=== PATIENT | female | born 1945 | race Caucasian/White ===

== ENCOUNTER 2016-08-21 18:24 | Emergency (ER) | payer OTHER ==
[~2016-08-21] VITALS: Ht 152.4 cm; Wt 55.6 kg
[~2016-08-21 18:24] MED LIST: POLY119S PO; ZOFR4TAB3 PO
[2016-08-21 18:36] VITALS: BP 141/102; PULSE 82; RESP 18; TEMP 98.2; O2SAT 96
[2016-08-21] MEDS ORDERED: SERT-132 PO (18:49)
[2016-08-21] MEDS ORDERED: PRAV40TA2 PO (18:49)
[2016-08-21] MEDS ORDERED: OMEP20TA PO (18:49)
[2016-08-21] MEDS ORDERED: ATEN100T PO (18:49)
[2016-08-21] MEDS ORDERED: AMLO10TA2 PO (18:49)
[2016-08-21] MEDS ORDERED: LISI-515 PO (18:49)
[2016-08-21] MEDS ORDERED: HYDR-3535 PO (18:49)
--- NOTE | 2016-08-21 18:53 | PD ---
HPI Chief Complaint: Skin Problem Time Seen by Provider: 18:52 Travel History International Travel<30 days: No Contact w/Intl Traveler<30days: No Traveled to known affect area: No History of Present Illness HPI 71 yo F c/o mass in region of perineum associated with pain. + Pressure like sensation with urge to defecate. Pain is worse with bowel movements. Duration 4 days. No fever. No recent trauma. Pt has an appointment with colorectal surgery next week. She reports mass is only palpable during bowel movement or urination. PFSH Past Medical History Depression: Yes High Cholesterol: Yes GERD: Yes Hypertension: Yes Medical other: Yes (CHRONIC BACK PAIN) Tetanus Vaccination: < 5 Years Influenza Vaccination: Yes ?: Not Past Surgical History Hysterectomy: Yes Social History Alcohol Use: No Tobacco Use: Yes (04/08 PPD) Substance Use: No Allergies-Medications (Allergen,Severity, Reaction): Coded Allergies: Aspirin (Verified Allergy, Severe, Hives, 08/21/16) Augmentin (Verified Allergy, Severe, Rash, 08/21/16) Biaxin (Verified Allergy, Severe, Rash, 08/21/16) Duricef (Verified Allergy, Severe, Rash, 08/21/16) Keflex (Verified Allergy, Severe, Rash, 08/21/16) Sulfa (Verified Allergy, Severe, Rash, 08/21/16) Reported Meds & Prescriptions Reported Meds & Active Scripts Active Reported Lortab (Hydrocodone-Acetaminophen) 10-325 Mg Tab 1 Tab PO BID PRN Sertraline (Sertraline HCl) 50 Mg Tab 50 Mg PO DAILY Omeprazole 20 Mg Tab 20 Mg PO DAILY Pravastatin 40 Mg Tab 40 Mg PO DAILY Atenolol 100 Mg Tab 100 Mg PO DAILY Lisinopril 20 Mg Tab 20 Mg PO DAILY Amlodipine (Amlodipine Besylate) 10 Mg Tab 10 Mg PO DAILY Review of Systems Except as stated in HPI: all other systems reviewed are Neg General / Constitutional: No: Fever Skin: Positive Lesions Physical Exam Narrative GENERAL: 71 yo F, WNWD, NAD : No palpable vulvar or perirectal mass. No mass on rectal exam. No vaginal mass. No VD/VB. No rectal bleed. SKIN: Warm and dry. HEAD: Atraumatic. Normocephalic. EYES: Pupils equal and round. No scleral icterus. No injection or drainage. ENT: No nasal bleeding or discharge. Mucous membranes pink and moist. NECK: Trachea midline. No JVD. CARDIOVASCULAR: Regular rate and rhythm. RESPIRATORY: No accessory muscle use. Clear to auscultation. Breath sounds equal bilaterally. GASTROINTESTINAL: Abdomen soft, non-tender, nondistended. Hepatic and splenic margins not palpable. MUSCULOSKELETAL: Extremities without clubbing, cyanosis, or edema. No obvious deformities. NEUROLOGICAL: Awake and alert. No obvious cranial nerve deficits. Motor grossly within normal limits. Five out of 5 muscle strength in the arms and legs. Normal speech. PSYCHIATRIC: Appropriate mood and affect; insight and judgment normal. Data Data Last Documented VS Vital Signs Date Time Temp Pulse Resp B/P Pulse Ox O2 Delivery O2 Flow Rate FiO2 08/21/16 20:30 85 18 118/80 96 Room Air 08/21/16 18:36 98.2 VS reviewed Orders Basic Metabolic Panel (Bmp) (08/21/16 19:29) Complete Blood Count With Diff (08/21/16 19:29) Urinalysis - C+S If Indicated (08/21/16 19:29) Iv Access Insert/Monitor (08/21/16 19:29) Sodium Chloride 0.9% Flush (Ns Flush) (08/21/16 19:30) Ct Pelvis W Iv Contrast(Rout) (08/21/16 ) Diatrizoate Liq ( Gastroview Liq) (08/21/16 19:30) Fleets Enema PRN (08/21/16 19:53) Sodium Chlor 0.9% 1000 Ml Inj (Ns 1000 M (08/21/16 20:30) Ondansetron Inj (Zofran Inj) (08/21/16 20:30) Ketorolac Inj (Toradol Inj) (08/21/16 20:30) Fleets Enema (Adult) (Fleets Enema (Adul (08/21/16 21:30) Iohexol 350 Inj (Omnipaque 350 Inj) (08/21/16 21:31) Acetamin-Hydrocod 325-5 Mg ([place] 5-325 (08/21/16 22:30) Labs Laboratory Tests Test 08/21/16 08/21/16 19:30 19:40 Urine Color YELLOW Urine Turbidity CLEAR Urine pH 6.0 Urine Specific [place] 1.025 Urine Protein TRACE mg/dL Urine Glucose (UA) NEG mg/dL Urine Ketones TRACE mg/dL Urine Occult Blood NEG Urine Nitrite NEG Urine Bilirubin NEG Urine Leukocyte Esterase TRACE Urine RBC 0-2 /hpf Urine WBC 3-5 /hpf Urine Squamous Epithelial 0-5 /hpf Cells Urine Bacteria OCC /hpf Microscopic Urinalysis Comment CULT NOT INDICATED White Blood Count 9.6 TH/MM3 Red Blood Count 4.81 MIL/MM3 Hemoglobin 14.2 GM/DL Hematocrit 41.6 % Mean Corpuscular Volume 86.5 FL Mean Corpuscular Hemoglobin 29.4 PG Mean Corpuscular Hemoglobin 34.0 % Concent Red Cell Distribution Width 13.5 % Platelet Count 290 TH/MM3 Mean Platelet Volume 7.7 FL Neutrophils (%) (Auto) 65.3 % Lymphocytes (%) (Auto) 26.6 % Monocytes (%) (Auto) 5.6 % Eosinophils (%) (Auto) 1.5 % Basophils (%) (Auto) 1.0 % Neutrophils # (Auto) 6.3 TH/MM3 Lymphocytes # (Auto) 2.6 TH/MM3 Monocytes # (Auto) 0.5 TH/MM3 Eosinophils # (Auto) 0.1 TH/MM3 Basophils # (Auto) 0.1 TH/MM3 CBC Comment DIFF FINAL Differential Comment Sodium Level 137 MEQ/L Potassium Level 4.3 MEQ/L Chloride Level 101 MEQ/L Carbon Dioxide Level 31.4 MEQ/L Anion Gap 5 MEQ/L Blood Urea Nitrogen 26 MG/DL Creatinine 0.77 MG/DL Estimat Glomerular Filtration 74 ML/MIN Rate Random Glucose 100 MG/DL Calcium Level 8.9 MG/DL [facility] Medical Decision Making Medical Screen Exam Complete: Yes Emergency Medical Condition: Yes Differential Diagnosis perirectal abscess, bartholin cyst, cellulitis, neoplasm Narrative Course CBC & BMP Diagram 08/21/16 19:40 Last [address] 08/21/16 0000 Signed Impressions: Service Date/Time: Sunday, August 21, 2016 21:21 - CONCLUSION: 1. No evidence of acute pelvic process. No masses are identified. 2. 3.6 cm abdominal aortic aneurysm Rashid Robbins MD The patient is resting comfortably and feels better, is alert and in no distress. The patients results and examination findings were discussed. The repeat examination is unremarkable and benign. The history, exam, diagnostic testing, and current condition do not suggest any significant pathology to warrant further testing, continued ED treatment, admission, or surgical evaluation at this point. The vital signs have been stable. The patient does not have uncontrollable pain, intractable vomiting, or other significant symptoms. The patient's condition is stable and appropriate for discharge. The patient will pursue further outpatient evaluation with a primary care physician or other designated or consulting physician as indicated in the discharge instructions. The patient expressed understanding and was agreeable with this plan. Diagnosis Primary Impression: Rectal mass Additional Impression: Abdominal aortic aneurysm (AAA) 3.0 cm to 5.0 cm in diameter in female Referrals: DR SCOTT 2 days Colon Rectal Specialist 2 days Additional Instructions: You have a choice when it comes to health care, and we are glad that you chose [facility]. Hopefully, we have met your expectations on today's visit. You are welcome to return to [facility] at any time, as we are committed to meeting the health care needs of our community. PLEASE FOLLOW UP WITH COLORECTAL SURGEON PLANNED. PLEASE FOLLOW UP WITH DR SCOTT REGARDING YOUR ABDOMINAL ANEURYSM. TODAY IT MEASURES 3.6CM, WHICH SHOULD BE COMPARED TO MOST RECENT MEASUREMENT ON RECORD. Med/Other Pt SpecificInfo: No Change to Meds Disposition: 01 DISCHARGE HOME Condition: Stable Abram Agudelo MD August 21, 2016 18:53
[2016-08-21 19:15] VITALS: BP 111/73; PULSE 83; RESP 17; O2SAT 98
[2016-08-21] MEDS ORDERED: SODIUM CHLORIDE 0.9% FLUSH 10 ML FLUSH IV FLUSH PRN (19:30)
[2016-08-21] MEDS ORDERED: DIATRIZOATE MEGLUM/DIATRIZOATE SOD 9 ML CUP RECTAL ONE (19:30)
[2016-08-21 19:53] LABS: AUTOMATED NEUTROPHIL # 6.3 TH/MM3 (1.8-7.7); BASOPHIL # 0.1 TH/MM3 (0-0.2); EOSINOPHIL # 0.1 TH/MM3 (0-0.4); EOSINOPHIL % 1.5 % (0.0-4.0); HEMATOCRIT 41.6 % (35.0-46.0); HEMO FLAGS DIFF FINAL; LYMPH % 26.6 % (9.0-44.0); LYMPHOCYTE # 2.6 TH/MM3 (1.0-4.8); MEAN CELL VOLUME 86.5 FL (80.0-100.0); MEAN CORPUSCULAR HEMOGLOBIN 29.4 PG (27.0-34.0); MONO % 5.6 % (0.0-8.0); NEUT % 65.3 % (16.0-70.0); PLATELET COUNT 290 TH/MM3 (150-450); RED BLOOD COUNT 4.81 MIL/MM3 (4.00-5.30); RED CELL DISTRIBUTION WIDTH 13.5 % (11.6-17.2); WHITE BLOOD COUNT 9.6 TH/MM3 (4.0-11.0)
[2016-08-21 19:56] LABS: BLOOD, URINE NEG (NEG); GLUCOSE,URINE NEG (NEG); KETONE, URINE TRACE mg/dL (NEG); NITRITE,URINE NEG (NEG)
[2016-08-21 20:05] LABS: URINE COLOR YELLOW (YELLW/STRAW)
[2016-08-21 20:06] LABS: BACTERIA, URINE OCC /hpf; COMMENT (UR) CULT NOT INDICATED; CULTURE IF INDICATED CULT NOT INDICATED; RBC, URINE 0-2 /hpf (0-3); SQUAMOUS EPITHELIAL CELL URINE 0-5 /hpf (0-5)
[2016-08-21 20:12] LABS: POTASSIUM 4.3 MEQ/L (3.5-5.1)
[2016-08-21 20:16] LABS: BICARBONATE 31.4 MEQ/L (21.0-32.0)
[2016-08-21 20:30] VITALS: BP 118/80; PULSE 85; RESP 18; O2SAT 96
[2016-08-21] MEDS ORDERED: ONDANSETRON HCL 4 MG/2 ML VIAL IV PUSH ONE (20:30)
[2016-08-21] MEDS ORDERED: KETOROLAC TROMETHAMINE 30 MG/ML (IVP) VIAL IV PUSH ONE (20:30)
[2016-08-21] MEDS ORDERED: SODIUM CHLOR 0.9% 1000 ML INJ 1,000 ML IV ONE (20:30)
[2016-08-21 21:20] VITALS: BP 113/87; PULSE 86; RESP 18; O2SAT 98
[2016-08-21] MEDS ORDERED: SOD PHOSPHATE/SOD BIPHOSPHATE (ADULT) ENEMA 133ML RECTAL ONE (21:30)
[2016-08-21] MEDS ORDERED: IOHEXOL 350 MG/ML 10 ML VIAL (for RAD DIAG) IV ONE (21:31)
--- NOTE | 2016-08-21 22:00 | RADHPO ---
EXAM DATE/TIME: 08/21/2016 21:21 [place] COMPARISON: No previous studies available for comparison. INDICATIONS : Perirectal lump. Evaluate abscess. IV CONTRAST: 100 cc Omnipaque 350 (iohexol) IV ORAL CONTRAST: No oral contrast ingested. RADIATION DOSE: 12.64 CTDIvol (mGy) MEDICAL HISTORY : Hypertension. SURGICAL HISTORY : Hysterectomy. ENCOUNTER: Initial ACUITY: 3 days PAIN SCALE: 7/10 LOCATION: Perianal TECHNIQUE: Volumetric scanning of the pelvis was performed. Using automated exposure control and adjustment of t he mA and/or kV according to patient size, radiation dose was kept as low as reasonably achievable to obtain optimal diagnostic quality images. FINDINGS: The visualized portion of the liver and spleen are normal. The kidneys are normal bilaterally without evidence of mass or hydronephrosis. Examination demonstrates an infrarenal abdominal aortic aneurysm measuring 3.6 cm. Examination of the pelvis demonstrates no evidence of free fluid or pelvic mass. No abnormally enlarg ed inguinal or retroperitoneal lymph nodes are present. The bladder is unremarkable. There is no evid ence of abscess. CONCLUSION: 1. No evidence of acute pelvic process. No masses are identified. 2. 3.6 cm abdominal aortic aneurysm Rashid Robbins MD on August 21, 2016 at 21:55 Board Certified Radiologist. This report was verified electronically.
[2016-08-21] MEDS ORDERED: ACETAMINOPHEN/HYDROcodone 325 MG/5 MG TAB PO ONE (22:30)
[2016-08-21 22:40] VITALS: BP 129/82; PULSE 87; RESP 17; O2SAT 96
[2016-08-21 23:20] VITALS: RESP 18
== END 2016-08-21 23:33 | disposition home or self-care (01) ==
LOC: PHED 18:24
DX: K62.9 Disease of anus and rectum, unspecified (principal); I71.4 Abdominal aortic aneurysm, without rupture; F32.9 Major depressive disorder, single episode, unspecified; E78.00 Pure hypercholesterolemia, unspecified
CPT/HCPCS: 72193; 80048; 81001; 85025; 96361; 96374; 96375; 99284; J1885; J2405; J7030; Q9963; Q9967